=== PATIENT | female | born 2000 | race Two or more races ===

== ENCOUNTER 2024-03-13 03:32 | Emergency (ER) | payer OTHER, SELFPAY ==
[2024-03-13 03:33] VITALS: BMI 22.4
[2024-03-13 03:56] VITALS: BP 95/63; PULSE 130; RESP 18; TEMP 36.9; O2SAT 99
--- NOTE | 2024-03-13 03:58 | XR_ITS ---
Examination: CT abdomen and pelvis without contrast. Coronal 3-D reconstructions. Sagittal 2-D reconstructions. Date and time of exam:March 13, 2024 0532 hrs. Indications: Onset abdominal pain vomiting diarrhea beginning 1:00 AM this morning CTDI: vol (mGy): 6.16 DLP: (mGycm): 316 Technique: Axial images of the abdomen have been obtained, 3 mm slice thickness Intravenous contrast material has not been administered. Low dose protocols were performed. One or more of the following dose reduction techniques were used; automated exposure control, adjustment of the mA and/or KV according to patient size, use of iterative reconstruction technique. Findings: No focal liver or splenic lesions No gallstones No pancreatic or adrenal mass No renal or ureteral calculi, no hydronephrosis Mildly fluid distended small bowel loops Normal appendix No bowel obstruction No diverticulitis 14 mm right ovarian follicle Impression: Mildly fluid distended small bowel loops, consider ileus, enteritis
--- NOTE | 2024-03-13 03:58 | PD.EDRME ---
Rapid Medical Screening Exam [facility] Arrival date/time: 03/13/24 03:32 23-year-old female presenting with no known medical history presents to the emergency room with a chief complaint of 10 out of 10 epigastric pain, vomiting, diarrhea, intermittent fevers x 3 hours. I have greeted and performed a focused initial assessment of this patient. A comprehensive ED assessment and evaluation of the patient, analysis of all test results, and completion of the medical decision making process will be conducted by additional ED providers. Chief Complaint: Nausea/Vomiting/Diarrhea Time Seen by Provider: 03/13/24 03:46 Vital signs: Vital Signs Temperature 98.5 F 03/13/24 03:56 Pulse Rate 130 H 03/13/24 03:56 Respiratory Rate 18 03/13/24 03:56 Blood Pressure 95/63 03/13/24 03:56 Pulse Oximetry (%) 99 03/13/24 03:56 Oxygen Delivery Method Room Air 03/13/24 03:56 Vital signs reviewed by provider: Yes
[2024-03-13] MEDS: ONDANSETRON ODT 4 MG TABRAP PO (04:08)
[2024-03-13] MEDS: HYDROcodone/APAP 5/325 TABLET 1 TAB PO (04:41)
[2024-03-13 05:00] LABS: Collection Type, Urine Clean Catch
[2024-03-13 05:04] LABS: Basophils % (Auto) 0 % (0-2.5); Eosinophils # (Auto) 0.1 Thou/mm3 (0.0-0.5); Eosinophils % (Auto) 1 % (0-10); Hematocrit 42.5 % (36.0-46.0); Hemoglobin 14.5 g/dL (12.0-16.0); Immature Granulocytes % (Auto) 1 % (0-0); Immature Granulocytes Auto 0.06 Thou/mm3 (0.00-0.00); Lymphocytes # (Auto) 0.6 Thou/mm3 (1.0-4.8); Lymphocytes % (Auto) 5 % (10-50); Mean Corpuscular HGB Conc 34.1 g/dl (31.0-37.0); Mean Corpuscular Hemoglobin 28.9 pg (25.0-35.0); Mean Corpuscular Volume 85 fL (80-100); Monocytes # (Auto) 1.5 Thou/mm3 (0.0-0.8); Monocytes % (Auto) 11 % (0-12); Neutrophils # (Auto) 10.8 Thou/mm3 (1.8-7.7); Neutrophils % (Auto) 83 % (37-80); Nucleated Red Blood Cell % 0 /100 WBC (0); Platelet Count 266 Thou/mm3 (140-440); RDW Standard Deviation 40.2 fL (36.4-46.3); Red Blood Count 5.01 Miln/mm3 (4.00-5.20); White Blood Count 13.1 Thou/mm3 (3.6-11.0)
[2024-03-13 05:08] LABS: Bilirubin,Urine Negative (Negative); Blood,Urine Negative (Negative); Clarity,Urine Turbid (Clear/Hazy); Color,Urine Yellow (Lt Yel-Yel); Glucose, Urine Negative (Negative); Ketones,Urine 1+ (Negative); Leukocyte Esterase,Urine Negative (Negative); Nitrite,Urine Negative (Negative); PH,Urine 8.5 (5.0-7.0); Protein,Urine 1+ (Neg - Trace); RBC,Urine 17 /hpf (0-3); Specific Gravity,Urine 1.028 (1.001-1.035); Squamous Epithelial Cell,Urine 6 /hpf (0-5); Urobilinogen,Urine Negative mg/dL (0.0-1.0); WBC,Urine 2 /hpf (0-5)
[2024-03-13 05:13] LABS: HCG Qualitative,Urine Negative
[2024-03-13 05:25] LABS: Alanine Aminotransferase 13 U/L (10-49); Albumin, Serum 5.1 gm/dL (3.5-5.0); Albumin/Globulin Ratio 1.5 (1.2-2.2); Alkaline Phosphatase 77 U/L (46-116); Anion Gap 11 (7-16); Aspartate Amino Transferase 17 U/L (0-34); BUN/Creatinine Ratio 13 Ratio (12-20); Bilirubin,Total 0.8 mg/dL (0.3-1.2); Blood Urea Nitrogen 9 mg/dL (9-23); Calcium 10.5 mg/dL (8.3-10.6); Calcium (Corrected) 10.5 mg/dL (8.5-10.1); Carbon Dioxide 23.8 mMol/L (20.0-31.0); Chloride 105 mMol/L (98-107); Creatinine (Component) 0.7 mg/dL (0.6-1.3); Estimated Creatinine Clearance 110.6 mL/min (>60); Globulin 3.5 gm/dL (2.3-3.5); Glucose 114 mg/dL (74-106); Lipase 28 U/L (12-53); Osmolality,Calculated 279 (275-295); Potassium 3.3 mMol/L (3.4-5.1); Sodium 140 mMol/L (136-145); Total Protein 8.6 gm/dL (5.7-8.2); eGFR > 60 See Note
--- NOTE | 2024-03-13 06:07 | PRELIM_ITS ---
CT scan of the abdomen and pelvis without intravenous contrast (axial sections with sagittal and ragini nal reformats); dated March 13, 2024 at 0532 hours Clinical History: Abdominal pain. Comparison: No prior study is available for comparison. Findings:The lung bases are clear.The liver, gallbladder, p ancreas, spleen, kidneys and adrenals are unremarkable on this noncontrast study.No evidence of bowel obstruction. There are fluid-filled small and large bowel loops. There are occasional colonic divert icula without evidence of diverticulitis. The appendix is within normal limits. There is no mesenteri c or retroperitoneal adenopathy.The urinary bladder is incompletely distended at the time of the exam ination. There is a 1.6 cm right ovarian follicle. There is no free fluid or free air.The osseous str uctures are unremarkable.Impression:No evidence of bowel obstruction, free air or fluid collection. F luid-filled small and large bowel loops, which may be nonspecific or related to diarrhea. However, th e possibility of mild enterocolitis cannot be excluded. Other findings as described above. Report Electronically Signed By: Sheree Brown 03/13/2024 6:06:12 AM [EST]
--- NOTE | 2024-03-13 06:28 | EDNOTE_ITS ---
<Statement entered by Zenobia Toledo MD - 03/13/24 09:15> As co-signing physician, I was present and available for consult prn. I concur with the plan and care as documented by the midlevel provider. ED Abdominal Pain RME/HPI General Chief Complaint: Nausea/Vomiting/Diarrhea Stated complaint: VOMITING AND DIARRHEA TONIGHT, ABD PAIN Time seen by provider: 03/13/24 03:46 Arrival date/time: 03/13/24 03:32 23-year-old female presents emergency department complains of vomiting and sunita rrhea tonight patient reports them started approximately 5 hours ago patient reports no fever Limitations: no limitations RME / HPI RME / HPI narrative: 03/13/24 03:32 23-year-old female presenting with no known medical history presents to the emergency room with a chief complaint of 10 out of 10 epigastric pain, vomiting, diarrhea, intermittent fevers x 3 hours. I have greeted and performed a focused initial assessment of this patient. A comprehensive ED assessment and evaluation of the patient, analysis of all test results, and completion of the medical decision making process will be conducted by additional ED providers. Related Data Previous Rx's ?Medication ?Instructions ?Recorded ipratropium bromide 21 mcg (0.03 2 spray intranasal BID #30 mL 04/03/19 %) nasal spray loratadine 10 mg tablet (Allergy 10 mg PO QDAY allergy symptoms #30 04/03/19 Relief (loratadine)) tabs promethazine-DM 6.25 mg-15 mg/5 mL 5 ml PO Q6H PRN cough #60 mL 04/03/19 oral syrup ibuprofen 600 mg tablet 600 mg PO Q6H #30 tabs 03/13/24 loperamide 2 mg capsule (Imodium 2 mg PO Q6H PRN loose stool #14 03/13/24 A-D) caps ondansetron 4 mg disintegrating 4 mg PO Q8H PRN nausea and 03/13/24 tablet vomiting #10 tabs Allergies Allergy/AdvReac Type Severity Reaction Status Date / Time guaifenesin Allergy swollen Verified 04/03/19 11:32 lips codeine Allergy swollen Uncoded 04/03/19 11:32 lips Review of Systems Review of Systems Systems Reviewed: All systems reviewed, normal except as documented Constitutional Constitutional: Reports system reviewed and no additional complaints, except as documented, Denies fever(s) and Denies headache(s) Eyes Eyes: Reports system reviewed and no additional complaints, except as documented and Denies blurry vision ENT Ears, Nose, Mouth, and Throat: Reports system reviewed and no additional complaints, except as documented, Denies headache(s), Denies nasal congestion and Denies nasal discharge Cardiovascular Cardiovascular: Reports system reviewed and no additional complaints, except as documented, Denies chest pain and Denies dyspnea Respiratory Respiratory: Reports system reviewed and no additional complaints, except as documented, Denies chest congestion, Denies cough and Denies dyspnea Gastrointestinal Gastrointestinal: Reports system reviewed and no additional complaints, except as documented, Reports abdominal pain, Reports loose stools and Reports vomiting Integumentary/Breasts Skin/Breast: Reports system reviewed and no additional complaints, except as documented and Denies rash Neurologic Neurologic: Reports system reviewed and no additional complaints, except as documented, Reports as per HPI and Denies headache(s) Past Medical History Social History SMOKING STATUS: Never smoker ED Exam General Limitations: Present no limitations General appearance: Present alert and in no apparent distress Head Head exam: Present atraumatic, normocephalic and normal inspection Eye Eye exam: Present normal appearance, PERRL and EOMI; Absent conjunctival injection ENT ENT exam: Present normal exam, normal oropharynx and mucous membranes moist Neck Neck exam: Present normal inspection, full ROM and trachea midline Chest Chest inspection: Present normal inspection and symmetric chest wall rise Respiratory Respiratory exam: Present normal lung sounds bilaterally; Absent respiratory distress, wheezes, stridor or accessory muscle use Cardiovascular Cardiovascular exam: Present regular rate, normal rhythm and normal heart sounds Abdominal Exam Abdominal exam: Present soft and normal bowel sounds; Absent distention, tenderness, guarding, rebound, rigidity, Solorio's sign or tenderness at McBurney's Point Abdominal tenderness: Absent RUQ or RLQ Extremities Exam Extremities exam: Present normal inspection and full ROM Back Exam Back exam: Present normal inspection and full ROM Neurological Exam Neurological exam: Present alert, oriented X3 and CN II-XII intact Psychiatric Psychiatric exam: Present normal affect and normal mood Skin Skin exam: Present warm, dry, intact and normal color Course Quality Measures none Orders Category Date Time Status CT abdomen pelvis wo con Stat Exams 03/13/24 03:58 Taken CBC Stat Lab 03/13/24 04:29 Completed CMP [Comprehensive Metabolic Panel] Stat Lab 03/13/24 04:29 Completed HCG Qualitative,Urine Stat Lab 03/13/24 04:43 Completed Lipase Stat Lab 03/13/24 04:29 Completed UA [Urinalysis] Stat Lab 03/13/24 04:43 Completed Urine Culture Stat Lab 03/13/24 04:43 Received HYDROcodone*/APAP 5/325 [Hecker 5/325] Med 03/13/24 03:57 Discontinued 1 tab PO X1 ONE Ondansetron Odt [Zofran Odt] Med 03/13/24 03:57 Discontinued 4 mg PO X1 ONE Vital Signs Vital signs: Vital Signs Temperature 98.5 F 03/13/24 03:56 Pulse Rate 130 H 03/13/24 03:56 Respiratory Rate 18 03/13/24 03:56 Blood Pressure 95/63 03/13/24 03:56 Pulse Oximetry (%) 99 03/13/24 03:56 Oxygen Delivery Method Room Air 03/13/24 03:56 O2 saturation 99% room air within normal limits Abdominal Pain MDM MDM Narrative MDM Narrative:: 23-year-old female presents emergency department complains of vomiting and diarrhea tonight patient reports them started approximately 5 hours ago patient reports no fever On exam patient does not appear ill or toxic in no acute distress On exam patient has soft nontender abdomen no abdominal distention Lab work as well as CT scan ordered by my colleague I reviewed I do not feel that there are any acute emergent findings Patient discharged home in no distress to follow-up with primary care doctor in the next 24 to 48 hours and for any worsening symptoms to return to the ER immediately Patient data External records reviewed:: [facility] previous records Clinical information provided by:: patient Social determinants that could affect healthcare access:: none Patient has the following chronic illnesses:: None How is presenting disease/condition affected by chronic disease/condition?: no chronic disease Evaluation data The following diagnostics were reviewed and interpreted by me:: lab results and radiology exam(s) Lab and/or radiology exams considered but not ordered:: Labs radiology obtained Interpretation Summary: Reviewed by me Medications / Prescriptions Medications or Prescriptions considered but not ordered:: Given Medication administrations:: Medication Administration History Discontinued Medications Hydrocodone Bitart/Acetaminophen (Hydrocodone/Apap 5/325 Tablet) 1 tab PO X1 ONE Stop: 03/13/24 03:58 Last Admin: 03/13/24 04:41 Dose: 1 tab Documented By: KATERYNA Ondansetron HCl (Ondansetron Odt 4 Mg Tabrap) 4 mg PO X1 ONE; Protocol Stop: 03/13/24 03:58 Last Admin: 03/13/24 04:08 Dose: 4 mg Documented By: KATERYNA Given Consultations Consultation(s) initiated? (list below): No Diagnosis Differential diagnosis abdominal pain: abdominal pain, acute appendicitis and gastroenteritis Most likely diagnosis given after review of the tests above:: Abdominal pain Admission Indicated Admission indicated?: not indicated Admission Request Was there a request for admission?: No Disposition Plan Disposition Plan: Discharge Discharge Attestation Discharge Attestation: The patient and all family members were given an opportunity to ask questions and understood the discharge instructions. Discharge instructions specifically effects, indications for sooner follow up or return to the emergency department, and the expected course of current diagnosis. Patient condition: Stable Discharge Plan Plan Patient Disposition: HOME (Self Care) Disposition Comment: Stable Prescriptions/Referrals Prescriptions/Med Rec: New loperamide [Imodium A-D] 2 mg capsule 2 mg PO Q6H PRN (Reason: loose stool) Qty: 14 0RF ibuprofen 600 mg tablet 600 mg PO Q6H Qty: 30 0RF ondansetron 4 mg tablet,disintegrating 4 mg PO Q8H PRN (Reason: nausea and vomiting) Qty: 10 0RF No Action loratadine [Allergy Relief (loratadine)] 10 mg tablet 10 mg PO QDAY Qty: 30 3RF ipratropium bromide 0.03 % spray,non-aerosol 2 spray INTRANASAL BID Qty: 30 0RF Rx Instructions: administer into each nostril; wait 30 seconds between sprays promethazine-DM 6.25-15 mg/5 mL syrup 5 ml PO Q6H PRN (Reason: cough) Qty: 60 0RF Referrals: No Primary/Family,Physician [Primary Care Provider] - In 1 week Problem List Clinical Impression: Gastroenteritis Patient/Caregiver Discharge Instructions Education Materials: How the Colon Works Additional Instructions: Please follow up with your primary care doctor in the next 24-48hrs for any worsening symptoms return here immediately Print Language: Ukrainian Stand Alone Forms: Jennifer Award Info., Patient Portal Info Letter PA/[employer] ASSEMBLER Supervising Physician PA/[employer] AS[employer]ER Supervising Physician: Dr. TOLEDO
== END 2024-03-13 06:43 | disposition home or self-care (01) ==
PROVIDERS: Nurse Practitioner Family; Emergency Provider Emergency Medicine
DX: K52.9 Noninfective gastroenteritis and colitis, unspecified (principal)
CPT/HCPCS: 36415; 74176; 80053; 81001; 81025; 83690; 85025; 87086; 99284; Q0162; A9270